=== PATIENT | male | born 1985 | race African-American/Black ===

== ENCOUNTER 2024-12-14 12:53 | Emergency (ER) | payer SELFPAY ==
[2024-12-14 13:03] VITALS: BP 142/109; PULSE 64; RESP 18; TEMP 36.5; O2SAT 100
--- NOTE | 2024-12-14 13:15 | ED.DENTAL ---
HPI - Dental/Oral General Chief complaint: Dental/Oral Stated complaint: Dental Pain Time Seen by Provider: 12/14/24 13:15 Source: patient Mode of arrival: ambulatory Limitations: no limitations History of Present Illness HPI Narrative: 39-year-old male presents with pain to right upper mouth. Patient reports history of dental infection never followed up with dentist. All systems reviewed and negative except as noted above. Related Data Allergies Allergy/AdvReac Type Severity Reaction Status Date / Time No Known Allergies Allergy Verified 12/14/24 13:23 PMFSH Comments At time of signature, agree with nursing past medical, surgical, social and family history. There is no relevant family history pertinent to the presenting complaint. Exam Narrative: GENERAL: This is a well-nourished, well-developed patient, in no apparent distress. HEAD: normocephalic, atraumatic. EYES: PERRL. Sclera clear/white. Vision is grossly intact. EARS: External ears normal NOSE: External nose normal MOUTH: tooth #2, 3, 4 broken down to gumline, decayed, surrounding gum erythema. no drainage. NECK: Neck supple, non-tender without lymphadenopathy, masses or thyromegaly. CARDIOVASCULAR: Regular rate and rhythm without murmurs, gallops, or rubs. RESPIRATORY: Clear to auscultation. Breath sounds equal bilaterally. No wheezes, rales, or rhonchi. SKIN: warm, Dry, intact with no suspicious lesions or rash, good texture and turgor. NEURO: awake, alert, and oriented to person, place and time. There were no obvious focal neurologic abnormalities. EXTREMITIES: No joint tenderness, effusion, or edema noted. Course Course Level of Care: Express Care Visit Vital Signs Vital signs: Vital Signs Temperature 36.5 C 12/14/24 13:03 Pulse Rate 64 12/14/24 13:03 Respiratory Rate 18 12/14/24 13:03 Blood Pressure 142/109 H 12/14/24 13:03 Pulse Oximetry 100 12/14/24 13:03 Oxygen Delivery Room Air 12/14/24 13:03 Temperature 36.5 C 12/14/24 13:03 Pulse Rate 64 12/14/24 13:03 Respiratory Rate 18 12/14/24 13:03 Blood Pressure 142/109 H 12/14/24 13:03 Pulse Oximetry 100 12/14/24 13:03 Oxygen Delivery Room Air 12/14/24 13:03 reviewed MDM - Dental/Oral MDM Narrative Medical decision making narrative: will treat dental infection with clindamycin. afebrile. pt given dental clinic list for follow up. Differential Diagnosis Differential diagnosis: Likely dental caries, toothache and dental abscess Discharge Plan Discharge Clinical Impression: Dental infection Patient Disposition: Home Condition: Stable Instructions: Antibiotic Form, Toothache (ED) Additional Instructions: Take antibiotic as prescribed until gone. Take ibuprofen every 6-8 hours as needed for pain. Follow-up with dentist at next available appointment. Patient Language: Wolof Prescriptions: New clindamycin HCl 300 mg capsule 300 mg PO QID 10 Days Qty: 40 0RF ibuprofen 600 mg tablet 600 mg PO Q6H PRN (Reason: pain) Qty: 30 0RF Follow-up/Referrals: PHYSICIAN,NITROGLYCERIN DISTRIBUTOR [Primary Care Provider, Internal Medicine] Stand Alone Forms: Work/School Release IP Time of Disposition: 13:21
== END 2024-12-14 13:30 | disposition home or self-care (01) ==
PROVIDERS: Emergency Provider Nurse Practitioner Family
DX: K04.7 Periapical abscess without sinus (principal)
CPT/HCPCS: 99203; G0463